=== PATIENT | male | born 1970 ===

== ENCOUNTER 2017-11-19 21:43 | Emergency (ER) | payer SELFPAY ==
[2017-11-19 21:46] VITALS: BP 133/74
--- NOTE | 2017-11-19 21:46 | ER Report ---
History and Physical Time Seen By MD: 21:46 HPI/ROS CHIEF COMPLAINT: Alf clearance HISTORY OF PRESENT ILLNESS: 47-year-old male brought in by police for senior care clearance. Patient appears grossly intoxicated with slurred speech, heavy odor of EtOH. He is not very cooperative for the exam. He voices no complaints. He voices no past significant medical history. There are no obvious injuries. On gross visualization of the patient REVIEW OF SYSTEMS: Respiratory: No cough, no dyspnea. Cardiovascular: No chest pain, no palpitations. Gastrointestinal: No vomiting, no abdominal pain. Musculoskeletal: No back pain. Allergies: Coded Allergies: UNABLE TO OBTAIN (Unverified , 11/19/17) Home Meds Unable to Obtain Active Prescriptions or Reported Meds Reviewed Nurses Notes: Yes Old Medical Records Reviewed: Yes Constitutional Vital Sign - Last 24 Hours 11/19/17 21:46 Temp 99.7 Pulse 119 Resp 16 B/P (MAP) 133/74 Pulse Ox 93 O2 Delivery Room Air Physical Exam Vital signs stable, afebrile, pulse ox normal General Appearance: The patient is alert, has no immediate need for airway protection and no current signs of toxicity. Palpation of the head and neck reveal no tenderness or trauma HEENT: Pupils equal and round no injection. TMs normal, oropharynx without redness or exudate, mucous. Membranes are moist Respiratory: Chest is non tender, lungs are clear to auscultation. No chest wall tenderness Cardiac: regular rate and rhythm Gastrointestinal: Abdomen is soft and non tender, no masses, bowel sounds normal. Musculoskeletal: Neck: Neck is supple and non tender. Extremities have full range of motion and are non tender. Skin: No rashes or lesions. DIFFERENTIAL DIAGNOSIS: After history and physical exam differential diagnosis was considered for senior care clearance, alcohol intoxication, polysubstance abuse Medical Decision Making ED Course/Re-evaluation ED Course Patient was admitted to an examination room. H&P was done. The differential diagnoses was considered. On clinical examination. Patient has no obvious injuries. He voices no obvious complaints. His vital signs are stable. He is medically cleared for admission to senior care. Decision to Disposition Date: Nov 19, 2017 Decision to Disposition Time: 21:51 Depart Departure Latest Vital Signs Vital Signs Date Time Temp Pulse Resp B/P (MAP) Pulse Ox O2 Delivery O2 Flow Rate FiO2 11/19/17 21:46 99.7 119 16 133/74 93 Room Air Impression: Primary Impression: Medical clearance for incarceration Additional Impression: Alcohol intoxication Condition: Improved Disposition: [facility] TO CARE HOME/CORRECTIONAL F New Scripts Unable to Obtain Active Prescriptions or Reported Meds Patient Instructions: Alcohol Intoxication (ED) Additional Instructions: Medically cleared for senior care admission Problem Qualifiers Additional Impression: Alcohol intoxication Complication of substance-induced condition: uncomplicated Qualified Codes: F10.920 - Alcohol use, unspecified with intoxication, uncomplicated RADHA CORONADO DO Nov 19, 2017 21:46
== END 2017-11-19 22:00 ==
LOC: ER 22:00
DX: F10.920 Alcohol use, unspecified with intoxication, uncomplicated (principal)
CPT/HCPCS: 99281